=== PATIENT | female | born 1965 | race African-American/Black ===

== ENCOUNTER → 2017-01-01 | Day surgery (SDC) | payer MEDICARE, MEDICAID ==
[~2017-01-01] VITALS: Ht 162.6 cm; Wt 118.4 kg
[~2017-01-01] MED LIST: ACETAMINOPHEN 325MG TABLET PO PRN; AMLO2.5T45 PO; CEFAZOLIN SODIUM 1000MG/VIAL ONE; FENTANYL CITRATE/PF 50MCG/ML 2ML VIAL ONE; HYDROMORPHONE HCL/PF 2MG/ML CPJ IV PRN; LABETALOL HCL 20MG/4ML CARPUJECT IV PRN; LIDOCAINE HCL 1% 20ML VIAL (Pyxis) INJ ONE; MEPERIDINE HCL/PF 25MG/ML CPJ IV PRN; METF500T4 PO; MIDAZOLAM HCL 2 MG/2 ML VIAL ONE; ONDANSETRON HCL 4MG/2ML VIAL IV PRN; ONDANSETRON HCL 4MG/2ML VIAL ONE; PROPOFOL 200MG/20ML VIAL IV ONE; SODIUM CHLORIDE 0.9% 1,000 ML IV SCH; SODIUM CHLORIDE 0.9% 10ML VIAL ONE
[2017-01-01 07:02] LABS: BASOPHILS % 0.7 % (0.0-2.0); EOSINOPHILS % 2.7 % (0.0-5.0); HEMATOCRIT. 35.6 % (36.0-48.0); HEMOGLOBIN. 11.7 g/dL (12.0-16.0); LYMPHOCYTES % 43.3 % (20.0-50.0); MEAN CORPUSCULAR HEMOGLOBIN 28.1 pg (28.0-32.0); MEAN CORPUSCULAR VOLUME 85.3 fL (81.0-99.0); MEAN PLATELET VOLUME 7.6 fl (7.4-10.4); MONOCYTES % 9.5 % (2.0-8.0); NEUTROPHILS % 43.8 % (40.0-76.0); PLATELET 298 x1000/uL (130-400); RED BLOOD CELL COUNT 4.17 mill/uL (4.2-5.4); RED CELL DISTRIBUTION WIDTH 14.9 % (11.6-14.6); WHITE BLOOD COUNT 6.6 x1000/uL (4.5-11.0)
[2017-01-01 07:11] LABS: PARTIAL THROMBOPLASTIN TIME 27.4 sec (24.0-34.0)
[2017-01-01 07:12] LABS: GLUCOSE URINE NEGATIVE (NEGATIVE); KETONES URINE NEGATIVE (NEGATIVE); LEUKOCYTE ESTERASE URINE 1+ (NEGATIVE); NITRITE URINE NEGATIVE (NEGATIVE); OCCULT BLOOD URINE 3+ (NEGATIVE); PH URINE 5.5 (4.5-8.0); PROTEIN URINE 3+ (NEGATIVE); SPECIFIC GRAVITY URINE 1.031 (1.005-1.030); UROBILINOGEN URINE 0.2 E.U./dL (0.2-1.0)
[2017-01-01 07:13] LABS: UCG SCREEN NEGATIVE
[2017-01-01 07:15] LABS: ANION GAP 12; CALCIUM 8.5 mg/dL (8.5-10.1); CARBON DIOXIDE 25 mEq/L (21-32); CHLORIDE 109 mEq/L (98-107); INDEX HEMOLYSI 1 (1-3); INDEX ICTERIC 1 (1-4); INDEX LIPEMIC 1 (1-3); UREA NITROGEN BLOOD 15 mg/dL (7-21); eGFR > 60 mL/min (>60)
[2017-01-01 07:37] LABS: CLARITY URINE BLOODY (CLEAR); COLOR URINE BLOODY (YELLOW)
[2017-01-01 07:44] LABS: RBC URINE TNTC /hpf (0-2)
[2017-01-01 07:45] LABS: BACTERIA URINE 1+; SQUAMOUS EPITHELIAL CELL URINE FEW /lpf (RARE/1+)
== END | disposition home or self-care (01) ==
LOC: OR 06:02
PROVIDERS: ATTEND Obstetrics & Gynecology Obstetrics
DX: N95.0 Postmenopausal bleeding (principal); Z85.3 Personal history of malignant neoplasm of breast; Z90.11 Acquired absence of right breast and nipple; E11.9 Type 2 diabetes mellitus without complications; D25.9 Leiomyoma of uterus, unspecified; I10 Essential (primary) hypertension; N84.0 Polyp of corpus uteri; Z86.73 Personal history of transient ischemic attack (TIA), and cerebral infarction without residual deficits
CPT/HCPCS: 36415; 58558; 80048; 81001; 81025; 85025; 85610; 85730; 88305; A4216; J0690; J2250; J2405; J3010; J3490; J7030; J2704